=== PATIENT | female | born 1945 | race Caucasian/White ===

== ENCOUNTER 2022-10-25 20:03 | Inpatient (IN) | payer MEDICARE, SELFPAY ==
[2022-10-25] VITALS (16 sets, daily range): BP systolic 167–211; BP diastolic 62–92; PULSE 74–97; RESP 13–24; TEMP 36.8; O2SAT 93–96
--- NOTE | ~2022-10-25 | XR_ITS ---
EXAMINATION: XR chest 1V portable Exam Date/Time: 10/25/2022 20:22 CDT HISTORY: LEFT SIDED CHEST PAIN AND SHORT OF BREATH X 1 DAY Comparison: None. RESULT: Lines, tubes, and devices: None. Lungs and pleura: Segmental left lower lung airspace disease, with volume loss. Mild left costophren ic angle blunting. Diffuse reticular opacities. Cardiomediastinal silhouette: Unremarkable. Other: No acute osseous or upper abdominal finding. IMPRESSION: Mild interstitial edema. Small left pleural effusion. Left basilar atelectasis versus pneumonia. Reviewed, dictated and finalized at location K.
--- NOTE | ~2022-10-25 | US_ITS ---
EXAMINATION: US abdomen limited DATE: 10/26/2022 08:55 INDICATION: Abnormal liver function tests. Elevated alkaline phosphatase. TECHNIQUE: Multiple grayscale and Doppler ultrasound images of the abdomen were obtained. COMPARISON: CT abdomen and pelvis 08/23/2012, chest CT 10/25/2022 FINDINGS: The visualized portions of the head, body, and tail of the pancreas are normal. The liver i s normal without focal lesion. No liver surface nodularity. There is normal flow in main portal vein. The gallbladder is normal in size. No gallstones. Gallbladder wall thickening is noted. There was no sonographic Pham sign. The common duct is normal and measures 4 mm. IMPRESSION: 1. Gallbladder wall thickening, likely secondary to interstitial edema. Reviewed, dictated and finalized at location A.
--- NOTE | ~2022-10-25 | CT_ITS ---
EXAMINATION: CTA chest PE protocol DATE: 10/25/2022 21:29 INDICATION: chest pain eval for PE TECHNIQUE: Computed tomography angiography (CTA) of the chest was performed with 100 mL Omnipaque-350 intravenous contrast timed to evaluate the pulmonary arteries. Coronal maximum intensity projection 3D-reconstructions were created by the technologist. The dose-length product (DLP) was 230.54 mGy-cm. Automated exposure control and iterative reconstruction technique were employed. COMPARISON: X-ray chest, same date. FINDINGS: Lung parenchyma and airways: Senescent changes. Dependent atelectasis. Dependent groundglass opacitie s and interlobular septal thickening. Left basilar atelectasis/scar. Pleura: Small volume left pleural fluid collection. Thoracic inlet, axillae and chest wall: Mild ascending aortic ectasia. Moderate atherosclerotic calci fications of the thoracic aorta, with severe stenosis at the brachiocephalic artery and origins of th e right common carotid artery and subclavian artery. Thoracic aorta: Normal. Mediastinum: Normal. Heart and pericardium: Small volume pericardial fluid. Cardiomegaly. Coronary artery calcifications: Heavy. Upper abdomen: Left renal atrophy. Large gastric diverticulum. Bones: No acute osseous finding. Pulmonary arteries: Study quality: Adequate. No pulmonary emboli detected. IMPRESSION: No CT evidence of acute pulmonary embolus. Cardiomegaly with small pericardial effusion. Mild interst itial pulmonary edema. Small left pleural effusion. Calcified plaques with severe stenoses involving the brachiocephalic artery and origins of the right common carotid and subclavian arteries. Reviewed, dictated and finalized at location K. IMPRESSION: No CT evidence of acute pulmonary embolus. Cardiomegaly with small pericardial effusion. Mild interstitial pulmonary edema. Small left pleural effusion. Calci fied plaques with severe stenoses involving the brachiocephalic artery and orig ins of the right common carotid and subclavian arteries.
--- NOTE | 2022-10-25 20:06 | ECG_ITS ---
Measurements Intervals [place] Rate: 85 P: 16 NM: 156 QRS: 0 QRSD: 80 T: 120 QT: 348 QTc: 415 Interpretive Statements REDUCED ECG QUALITY BECAUSE OF BASELINE ARTIFACT SINUS RHYTHM CONSIDER PREVIOUS ANTEROSEPTAL IN NONSPECIFIC T-WAVE FLATTENING ABNORMAL ECG NO PREVIOUS ECG AVAILABLE FOR COMPARISON Electronically Signed On 10-29-2022 15:29:12 CDT by Ashish Acosta M.D.
[2022-10-25 20:29] LABS: Basophils Percent Auto 0.4 % (0.2-1.2); Eosinophils Absolute Auto 0.2 K/mm3 (0-0.3); Eosinophils Percent Auto 1.8 % (0-4.4); Hematocrit 32.8 % (37.0-47.0); Hemoglobin 10.6 g/dL (12.0-15.0); Immature Granulocyte Absolute 0.04 K/mm3 (0.00-0.031); Immature Granulocyte Percent A 0.4 % (0-0.5); Lymphocytes Absolute Auto 1.52 K/mm3 (0.9-3.2); Lymphocytes Percent Auto 15.8 % (18.3-44.2); Mean Corpuscular HGB Conc 32.3 g/dl (32-36); Mean Corpuscular Hemoglobin 30.8 pg (26-34); Mean Corpuscular Volume 95.3 fl (80-100); Mean Platelet Volume 9.6 fl (7.4-10.4); Monocytes Absolute Auto 0.9 K/mm3 (0.1-0.6); Monocytes Percent Auto 9.4 % (2.6-8.5); Neutrophils Absolute Auto 6.9 K/mm3 (1.3-6.7); Neutrophils Percent Auto 72.2 % (45.5-73.1); Platelet Count Result 254 k/mm3 (150-375); Red Blood Count 3.44 M/mm3 (4.2-5.4); Red Cell Distribution Width 14.1 % (11.5-14.5); White Blood Count 9.6 K/mm3 (4.5-10.0)
[2022-10-25 20:35] LABS: Partial Thromboplastin Time 31.2 SECONDS (22.3-36.8); Prothrombin Time 13.6 Seconds (11.1-14.7)
[2022-10-25 20:37] LABS: Alanine Aminotransferase 46 U/L (6-35); Albumin Level 3.8 g/dL (3.5-5.1); Alkaline Phosphatase 294 U/L (38-126); Anion Gap 6 mmol/L (8-16); Aspartate Amino Transferase 36 U/L (14-36); Bilirubin,Total 0.8 mg/dL (0.2-1.3); Blood Urea Nitrogen 21 mg/dL (7-17); Calcium 8.6 mg/dL (8.4-10.2); Carbon Dioxide 28 mmol/L (22-30); Chloride 102 mmol/L (98-107); Estimated CRCL calculation 27 ml/min; Estimated Glomerular Filt Rate 33; Glucose 106 mg/dL (65-110); Lipase 58 U/L (23-300); Potassium 3.4 mmol/L (3.4-5.0); Sodium 136 mmol/L (137-145)
[2022-10-25 20:47] LABS: Troponin I < 0.012 ng/mL (0.000-0.034)
[2022-10-25] MEDS: MORPHINE SULFATE (*CRX) 4 MG/ML INJ 2 MG IV PUSH (21:12)
--- NOTE | 2022-10-25 21:49 | ED.GENADULT ---
HPI - General Adult General Chief complaint: Chest Pain Stated complaint: chest pain Time Seen by Provider: 10/25/22 20:35 History of Present Illness HPI narrative: Patient 77-year-old female who presents to the emergency department with chief complaint of chest pain. The patient reports that she has prior history of cardiac disease and is also had pericarditis. Patient has history of cardiac disease with a prior single vessel stent patient reports that she takes aspirin and Plavix and was given 325 mg of aspirin prior to arrival by EMS. Patient states that she has a sharp-like pain Related Data Allergies Allergy/AdvReac Type Severity Reaction Status Date / Time No Known Allergies Allergy Mild Verified 10/25/22 20:12 Review of Systems Review of Systems: A 10 system review of systems was completed on the patient and is negative except for what is stated in the HPI. Nursing and ancillary documentation was reviewed. PMFSH Comments History of pericarditis history of cardiac disease Course Vital Signs Vital signs: Vital Signs Temperature 36.8 C 10/25/22 20:01 Pulse Rate 80 10/25/22 20:01 Respiratory Rate 22 H 10/25/22 20:01 Blood Pressure 211/81 H 10/25/22 20:01 Pulse Oximetry 96 10/25/22 20:01 Oxygen Delivery Room Air 10/25/22 20:01 Temperature 36.8 C 10/25/22 20:01 Pulse Rate 80 10/25/22 20:01 Respiratory Rate 22 H 10/25/22 20:01 Blood Pressure 211/81 H 10/25/22 20:01 Pulse Oximetry 96 10/25/22 20:10 Oxygen Delivery Room Air 10/25/22 20:10 Medical Decision Making [facility] Narrative Medical decision making narrative: Differential diagnosis includes ACS, carditis, CHF, pulmonary embolism, EKG sinus rhythm rate of [address] elevation or ST depression Laboratory studies were obtained on the patient showed a white count of 9.6 hemoglobin was 10.6 electrolytes showed a creatinine of 1.5 ALT was 46 alk phos was 294 troponin is less than 0.012 lipase was less than 58 IMPRESSION: No CT evidence of acute pulmonary embolus. Cardiomegaly with small pericardial effusion. Mild interstitial pulmonary edema. Small left pleural effusion. Calcified plaques with severe stenoses involving the brachiocephalic artery and origins of the right common carotid and subclavian arteries Vital Signs Vital Signs: Vital Signs Temperature 36.8 C 10/25/22 20:01 Pulse Rate 80 10/25/22 20:01 Respiratory Rate 22 H 10/25/22 20:01 Blood Pressure 211/81 H 10/25/22 20:01 Pulse Oximetry 96 10/25/22 20:01 Oxygen Delivery Room Air 10/25/22 20:01 Temperature 36.8 C 10/25/22 20:01 Pulse Rate 80 10/25/22 20:01 Respiratory Rate 22 H 10/25/22 20:01 Blood Pressure 211/81 H 10/25/22 20:01 Pulse Oximetry 96 10/25/22 20:10 Oxygen Delivery Room Air 10/25/22 20:10 Lab Data 10/25/22 20:19 10/25/22 20:19 Labs: Lab Results 10/25/22 Range/Units 20:19 WBC 9.6 (4.5-10.0) K/mm3 RBC 3.44 L (4.2-5.4) M/mm3 Hgb 10.6 L (12.0-15.0) g/dL Hct 32.8 L (37.0-47.0) % MCV 95.3 (80-100) fl MCH 30.8 (26-34) pg MCHC 32.3 (32-36) g/dl RDW 14.1 (11.5-14.5) % Plt Count 254 (150-375) k/mm3 MPV 9.6 (7.4-10.4) fl Immature Gran % (Auto) 0.4 (0-0.5) % Neut % (Auto) 72.2 (45.5-73.1) % Lymph % (Auto) 15.8 L (18.3-44.2) % [place] % (Auto) 9.4 H (2.6-8.5) % Eos % (Auto) 1.8 (0-4.4) % Baso % (Auto) 0.4 (0.2-1.2) % Lymph # (Auto) 1.52 (0.9-3.2) K/mm3 [place] # (Auto) 0.9 H (0.1-0.6) K/mm3 Eos # (Auto) 0.2 (0-0.3) K/mm3 Baso # (Auto) 0.0 (0.0-0.1) K/mm3 Abs Immat Gran (auto) 0.04 H (0.00-0.031) K/mm3 Absolute Neuts (auto) 6.9 H (1.3-6.7) K/mm3 Absolute Nucleated RBC 0.0 (0.0-0.012) K/mm3 Nucleated RBC % 0.0 (0.0-0.2) % PT 13.6 (11.1-14.7) Seconds INR 1.0 APTT 31.2 (22.3-36.8) SECONDS Sodium 136 L (137-145) mmol/L Potassium 3.4 (3.4-5.0) mmol/L Chloride 102 (98-107) mmol/L Ca
[2022-10-25] MEDS: HYDROmorphone HCL INJ (*CRX) 1 MG/ML SYR IV PUSH (22:08)
[2022-10-25] MEDS: hydrALAZINE HCL 20 MG/ML VIAL 10 MG IV PUSH (22:08)
--- NOTE | 2022-10-25 22:16 | PM.IMHP ---
H&P: HPI History of Present Illness Date/Time: 10/25/22 22:16 Chief Complaint: chest pain Narrative: This is a 77-year-old female with past medical history significant for coronary artery disease, pericardial disease, pleural effusion. Patient presents to the emergency room due to chest pain localized to the left ribcage area worse with deep inspiration, nonradiating, no lightheadedness, no syncope, no near syncope, no PND, no orthopnea, no leg swelling, has had cough, night sweats, nasal congestion, according to patient she has had multiple hospitalizations in the last several weeks, patient denies any nausea, vomiting, abdominal pain, diarrhea, no weight loss, no rashes, no hemoptysis, no fevers no rigors no chills. Preliminary workup was significant for a chest x-ray was reported as: EXAMINATION:? XR chest 1V portable Exam Date/Time:? 10/25/2022 20:22 CDT HISTORY: LEFT SIDED CHEST PAIN AND SHORT OF BREATH X 1 DAY ? Comparison:? None. RESULT: Lines, tubes, and devices:? None. Lungs and pleura:? Segmental left lower lung airspace disease, with volume loss. Mild left costophrenic angle blunting. Diffuse reticular opacities. Cardiomediastinal silhouette:? Unremarkable. Other:? No acute osseous or upper abdominal finding. ? IMPRESSION: Mild interstitial edema. Small left pleural effusion. Left basilar atelectasis versus pneumonia. EXAMINATION: CTA chest PE protocol DATE: 10/25/2022 21:29 INDICATION: chest pain eval for PE TECHNIQUE: Computed tomography angiography (CTA) of the chest was performed with 100 mL Omnipaque-350 intravenous contrast timed to evaluate the pulmonary arteries. Coronal maximum intensity projection 3D-reconstructions were created by the technologist. The dose-length product (DLP) was 230.54 mGy-cm. Automated exposure control and iterative reconstruction technique were employed. COMPARISON: X-ray chest, same date. ? FINDINGS:? Lung parenchyma and airways: Senescent changes. Dependent atelectasis. Dependent groundglass opacities and interlobular septal thickening. Left basilar atelectasis/scar. Pleura: Small volume left pleural fluid collection. Thoracic inlet, axillae and chest wall: Mild ascending aortic ectasia. Moderate atherosclerotic calcifications of the thoracic aorta, with severe stenosis at the brachiocephalic artery and origins of the right common carotid artery and subclavian artery. Thoracic aorta: Normal. Mediastinum: Normal. Heart and pericardium: Small volume pericardial fluid. Cardiomegaly. Coronary artery calcifications: Heavy. Upper abdomen: Left renal atrophy. Large gastric diverticulum. Bones: No acute osseous finding. Pulmonary arteries: Study quality: Adequate. No pulmonary emboli detected. IMPRESSION: No CT evidence of acute pulmonary embolus. Cardiomegaly with small pericardial effusion. Mild interstitial pulmonary edema. Small left pleural effusion. Calcified plaques with severe stenoses involving the brachiocephalic artery and origins of the right common carotid and subclavian arteries. Review of Systems Review of Systems: Left-sided chest pain worse with inspiration nonradiating Constitutional: Constitutional: Reports chills, Reports malaise, Reports night sweats and Reports poor appetite Eyes: Eyes: Denies change in vision ENT: Denies dysphagia and Denies odynophagia Cardiovascular: Cardiovascular: Denies chest pain, Denies leg edema, Denies radiating jaw, neck or arm pain and Denies palpitations Respiratory: Respiratory: Reports cough and Reports pain on inspiration Gastrointestinal: Gastrointestinal: Denies abdominal pain, Denies dyspepsia, Denies heartburn, Denies diarrhea, Denies nausea and Denies vomiting Genitourinary: Genitourinary: Reports no additional female genitourinary complaints and Reports as per HPI Musculoskeletal: Musculoskeletal: Denies arthralgias, Denies joint swelling and Denies muscle weakness Integumentary/Breast
[2022-10-25 23:22] LABS: NT Pro B Type Natriuretic Pept 1010 pg/mL (19.9-100)
[2022-10-25 23:30] LABS: Troponin I < 0.012 ng/mL (0.000-0.034)
[2022-10-26] VITALS (20 sets, daily range): BP systolic 98–175; BP diastolic 54–83; PULSE 61–107; RESP 12–20; TEMP 35.6–37; O2SAT 93–98
--- NOTE | 2022-10-26 | ECHO_ITS ---
Patient Info Name: Valentina Tucker Age: 77 years : 1945 Gender: Female Ht: 64 in Wt: 160 lbs BSA: 1.83 m2 HR: 95 bpm BP: 175 / 68 mmHg Heart Rhythm: Sinus Rhythm Technical Quality: Fair Exam Date: 10/26/2022 8:43 AM Exam Location: [facility] Patient Status: Inpatient Admit Date: 10/25/2022 Staff Ordering Physician: Patrick Adams MD Grounds Maintenance Worker: Anne Clement RDCS Attending Provider: Isidoro Urbano MD Referring Physician: Angie SHERMAN; Exam Type: CA echo dop color flow w con Study Info Indications - pericardial effusion R07.9 - Chest pain, unspecified Complete two-dimensional, color flow and Doppler transthoracic echocardiogram is performed with contrast to opacify the left ventricle and to improve the deliniation of the left ventricle endocardial borders. Contrast/Agitated Saline Contrast/Ag. Saline: Definity Amount: 2.00 ml Administered By: Anne Clement RDCS Existing IV Access: Yes IV Access Condition: patent with no signs of infiltration Summary 1. Left ventricular hypertrophy with vigorous systolic contractility. 2. No valvular dysfunction identified. 3. Small circumferential pericardial effusion. Left Ventricle Left ventricular chamber dimension is normal. Left ventricular systolic function is hyperdynamic, estimated at >70%. There is moderate concentric increased left ventricular wall thickness. The left ventricular diastolic function is grade I diastolic dysfunction. Right Ventricle Right ventricular chamber dimension is normal. Left Atria Left atrial chamber dimension is mildly enlarged. Right Atria Right atrial chamber dimension is normal. Aortic Valve The aortic valve is normal. Pulmonic Valve The pulmonic valve is normal. Mitral Valve The mitral valve has normal leaflets. Tricuspid Valve The tricuspid valve leaflets are normal. Pericardium/Pleural There is small circumferential pericardial effusion. Aorta The aortic root size at the sinus of Valsalva is normal. Left Ventricular Outflow Tract Name Value Normal LVOT 2D LVOT Diameter 1.98 cm LVOT Doppler LVOT Peak Gradient 4 mmHg LVOT Mean Gradient 2 mmHg LVOT VTI 18.28 cm LVOT VTI/AV VTI Ratio 0.63 LVOT Stroke Volume 56.25 ml LVOT CO 4.41 l/min LVOT CI 2.41 L/min/m2 Pulmonic Valve Name Value Normal RVOT Doppler RVOT Peak Gradient 3 mmHg PV Doppler PV Peak Gradient 3 mmHg Mitral Valve Name Value Normal
--- NOTE | 2022-10-26 00:47 | ADMIMU ---
This patient, Valentina Tucker, was admitted to IMU status, and placed in Intensive Care Unit-4. Patient/family oriented to hospital policies and general routines including ID bracelet, bed and alarms, visiting hours, pain management, procedures, bathroom and other care routines, personal items, smoking policy, room service/diet, and visiting hours. Valuables list has been completed. Information on how to activate the Rapid Response Team has been discussed. Patient/Family are encouraged to report perceived risks to care and to ask questions if they do not understand what they are told or what they should do.
[2022-10-26] MEDS: METOPROLOL SUCCINATE EXT REL 12.5 MG TABCR PO ×2 (01:08→08:12)
[2022-10-26] MEDS: HYDROmorphone HCL INJ (*CRX) 1 MG/ML SYR IV PUSH ×5 (01:09→21:46)
[2022-10-26] MEDS: amLODIPine BESYLATE 5 MG TABLET PO ×2 (01:09→08:13)
[2022-10-26] MEDS: MELATONIN 3 MG TABLET PO ×2 (02:22→20:48)
[2022-10-26] MEDS: traZODone HCL 50 MG TABLET PO ×2 (02:22→20:48)
[2022-10-26 03:37] LABS: Troponin I 0.026 ng/mL (0.000-0.034)
[2022-10-26] MEDS: hydrALAZINE HCL 20 MG/ML VIAL 10 MG IV PUSH (04:16)
[2022-10-26] MEDS: AZITHROMYCIN 500 MG/NS 250 ML 500 MG/250 ML BAG 250 MG IVPB (04:16)
[2022-10-26] MEDS: CEFEPIME 1 GM/NS 50 ML 1 GM/50 ML BAG IVPB (04:17)
[2022-10-26] MEDS: FLUTICASONE PROPIONATE 0.05% NA SPR 16 GM BTL (*BKC) 2 SPRAY NASAL (08:11)
[2022-10-26] MEDS: ALBUTEROL SULFATE NEB 2.5 MG/3 ML INH INHALATION ×3 (08:11→20:30)
[2022-10-26] MEDS: IPRATROPIUM BR 0.02% INH SOLN 0.5 MG/2.5 ML VIAL INHALATION ×3 (08:11→20:30)
[2022-10-26] MEDS: LORATADINE 10 MG TABLET PO (08:12)
[2022-10-26] MEDS: CLOPIDOGREL BISULFATE 75 MG TABLET PO (08:12)
[2022-10-26] MEDS: lisinopriL 20 MG TABLET 40 MG PO (08:12)
[2022-10-26] MEDS: ATORVASTATIN 40 MG TABLET PO (08:12)
[2022-10-26] MEDS: ASPIRIN 81 MG ENTERIC TABLET PO (08:12)
[2022-10-26] MEDS: PANTOPRAZOLE 40 MG TABLET PO (08:13)
[2022-10-26] MEDS: COLCHICINE 0.3 MG TABLET PO ×2 (08:15→17:05)
[2022-10-26] MEDS: ENOXAPARIN 30 MG/0.3 ML SYRINGE SUB-Q (08:15)
[2022-10-26] MEDS: PERFLUTREN LIPID MICROSPHERES 1.5 ML VIAL DILUTED TO 10 ML TOTAL VOLUME IV PUSH (09:20)
--- NOTE | 2022-10-26 10:05 | PM.CNCAR ---
Assessment and Plan Assessment and plan (1) Pericarditis: Code(s): I31.9 - Disease of pericardium, unspecified Status: Acute Plan This is a 77-year-old lady who appears to have recurrent pericarditis with significant chest pain that has been occurring off and on since January of last year after a complicated PCI as she details above. There is no evidence of an acute coronary syndrome and from that aspect I believe she is stable. She is taking colchicine since the original event. At this point I believe I would recommend resuming prednisone and tapering at much more slowly possibly over several months and her physicians at [facility] will see have to see her and determine a slower more cautious approach at a tapering this over a longer period of time. I would recommend a more aggressive approach and slow tapering to hopefully avoid chronic effusive constrictive disease in the years that lie ahead Ashish Acosta MD [facility] History of Present Illness History of Present Illness Consult date/time: 10/26/22 10:05 Reason For Visit: Chest Pain,Pericardial Effusion,Pleural Effusion Narrative: This is a very pleasant 77-year-old lady I am seeing at the request of the hospitalist because of his chest pain. The patient is unknown to me prior to this consultation but provides a very good history. She indicates since she was found to have coronary artery disease in January of 2022 when she was being evaluated by skoog patching machine operator at [facility] because of symptoms of exertional shortness of breath. She says she was brought to the cardiac catheterization lab for evaluation and found to have high-grade disease in the left anterior descending. PCI of this was performed but unfortunately was complicated by a dissection of the LAD. She says of course that during this part of the procedure she was having severe chest and back pain and ultimately the procedure was completed successfully, her LAD was stented and her skoog patching machine operator told her that she had a good result and there was no substantial damage to her heart a following that procedure/incident. Since then she has had several hospital stays/admissions for pericarditis. She describes being seen at [facility] on 2 occasions and on 1 occasion and a hospital in [place] as she and her were wintering down there. She has been on colchicine 0.6 mg twice daily since this all started she off had in the fall of last year was treated with a course of indomethacin which was then tapered and discontinued last month her skoog patching machine operator at [facility] had her on a course of prednisone which was tapered over the course of about 3-4 weeks and she felt quite well when she was taking prednisone. That stopped a couple of weeks ago she states that this dull chest pain began to recur following the of the steroid being discontinued yesterday the pain became much more severe again she was describing a point like pain in the center of the chest that was much worse with deep breathing and were were sent worsening with the supine position. She called an ambulance because of the symptoms in the proximity to [facility] she was brought here here for evaluation. She had a chest x-ray done which shows some enlargement in the cardiac silhouette a chest CT done which demonstrates a small circumferential pericardial effusion. Her elected cardiogram shows no acute ischemic changes. Her troponin levels do not show any evidence of myocardial injury. In this setting she is being seen in consultation. She says she was given some analgesic medications earlier last night still having pain but it is much better than it was yesterday evening. She does report a history of peripheral vascular disease with previous percutaneous intervention in the right lower extremity. She is also known to have carotid artery disease on the right side that is being followed by a vascular surgeon elsewhere. Chest CT done yesterday the emergency room shows disease
[2022-10-26] MEDS: predniSONE 20 MG TABLET PO (10:53)
--- NOTE | 2022-10-26 11:41 | PM.IMPN ---
Progress Note: A&P Assessment and Plan (1) Lung infiltrate: Code(s): R91.8 - Other nonspecific abnormal finding of lung field Status: Acute Assessment and Plan: Admit to telemetry unit Patient placed on cefepime in vancomycin Zithromax due to multiple hospitalizations Cultures in progress Supportive care (2) Chest pain: Code(s): R07.9 - Chest pain, unspecified Status: Acute Assessment and Plan: ? pericarditis prednisone, colchicine (3) Pericarditis: Code(s): I31.9 - Disease of pericardium, unspecified Status: Acute Assessment and Plan: Continue colchicine (4) Recurrent left pleural effusion: Code(s): J90 - Pleural effusion, not elsewhere classified Status: Acute Assessment and Plan: A small pleural effusion Gentle diuresis as needed (5) CAD (coronary artery disease): Code(s): I25.10 - Atherosclerotic heart disease of [place] coronary artery without angina pectoris Status: Acute Assessment and Plan: Status post stent placement Continue Plavix, continue metoprolol or, continue lisinopril, atorvastatin and nitroglycerin (6) Elevated alkaline phosphatase level: Code(s): R74.8 - Abnormal levels of other serum enzymes Status: Acute Assessment and Plan: US noted (7) CKD (chronic kidney disease): Code(s): N18.9 - Chronic kidney disease, unspecified Status: Acute Assessment and Plan: monitor labs Subjective Date/time seen: 10/26/22 11:41 Interval history: No complaints Exam Narrative: Patient is sitting in semi erect position stretcher Const: General: cooperative, comfortable, no acute distress, well developed, alert, awake, ill appearing acutely and average body habitus Nutritional Appearance: average body habitus Orientation/consciousness: patient oriented x3 Other: Pleasant comfortable cooperative elderly lady appears to be in no distress visiting with her . Has worsening chest pain upon sitting up for examination HENMT: Head: normal to inspection, normocephalic and atraumatic Ears: hearing grossly normal bilaterally Face/Nose/Sinus: normal facial exam Face and sinus: normal facial exam Mouth: Yes moist mucous membranes Eyes: General: appearance normal, both eyes and all related structures Sclera: sclerae normal Pupils: Equal, round and reactive pupils present EOM: EOMs intact bilaterally Neck: Neck: full ROM, no lymphadenopathy and no JVD Thyroid: thyroid normal Lymphatic: no lymphadenopathy noted Other: Patient has a audible right carotid bruit Resp: Effort & Inspection: normal respiratory effort and able to speak in complete sentences Auscultation: clear to auscultation bilaterally, no crackles, no rales, no rhonchi, no wheezes and diminished lung sounds Other: Few rales are noted at the right base no wheezing no rhonchi Cardio: Jugular venous distension: no JVD Rate: regular rate Rhythm: regular rhythm Heart sounds: S1 normal heart sound present and S2 normal heart sound present Other: Soft 2 component pericardial rub is audible GI: Auscultation: normal bowel sounds : General: Yes deferred Skin: General skin exam: normal color Rashes: no rashes Wounds: no wounds Neuro: General: patient oriented x3, CN's II-XI intact bilaterally and Unable to assess gait Cranial nerves: Yes CN's II-XII intact bilaterally and Yes Equal, round and reactive pupils present Cognition (Neuro): normal cognition Speech: normal speech Gait exam (Neuro): Unable to assess gait Motor exam (neuro): 5/5 motor strength present throughout Sensory Exam: No Sensory deficit (Neuro) Other: Alert and oriented x3 Extrem: General: normal to inspection, full ROM, no joint enlargement and no pedal edema Other: No edema, reduced pulse in the right lower extremity Objective Data Vital Signs Vital Signs: Vital Signs - 24 hr 10/25/22 20:01 0
[2022-10-26] MEDS: LATANOPROST 0.005% OP SOLN 2.5 ML BTL 1 DROP EACH EYE (20:48)
[2022-10-27] VITALS: BP 144/52; PULSE 53; PULSE 58; RESP 20; TEMP 35.8; O2SAT 95
[2022-10-27] MEDS: CEFEPIME 1 GM/NS 50 ML 1 GM/50 ML BAG IVPB (03:45)
[2022-10-27 04:00] VITALS: PULSE 59
[2022-10-27] MEDS: AZITHROMYCIN 500 MG/NS 250 ML 500 MG/250 ML BAG 250 MG IVPB (04:15)
[2022-10-27 04:40] VITALS: BP 136/63; PULSE 63; RESP 16; TEMP 36.1; O2SAT 95
[2022-10-27 06:55] LABS: Estimated CRCL calculation 24 ml/min; Estimated Glomerular Filt Rate 33
--- NOTE | 2022-10-27 07:48 | PM.DS ---
DS: Admitting Diagnosis Discharge Date October 27, 2022 Admitting Diagnosis Pericarditis, pneumonia DS: Discharge Diagnosis Discharge Diagnosis (1) Lung infiltrate: Code(s): R91.8 - Other nonspecific abnormal finding of lung field Status: Acute Assessment and Plan: Admit to telemetry unit Patient placed on cefepime in vancomycin Zithromax due to multiple hospitalizations Cultures in progress Supportive care (2) Chest pain: Code(s): R07.9 - Chest pain, unspecified Status: Acute Assessment and Plan: ? pericarditis prednisone, colchicine (3) Pericarditis: Code(s): I31.9 - Disease of pericardium, unspecified Status: Acute Assessment and Plan: Continue colchicine (4) Recurrent left pleural effusion: Code(s): J90 - Pleural effusion, not elsewhere classified Status: Acute Assessment and Plan: A small pleural effusion Gentle diuresis as needed (5) CAD (coronary artery disease): Code(s): I25.10 - Atherosclerotic heart disease of [place] coronary artery without angina pectoris Status: Acute Assessment and Plan: Status post stent placement Continue Plavix, continue metoprolol or, continue lisinopril, atorvastatin and nitroglycerin (6) Elevated alkaline phosphatase level: Code(s): R74.8 - Abnormal levels of other serum enzymes Status: Acute Assessment and Plan: US noted (7) CKD (chronic kidney disease): Code(s): N18.9 - Chronic kidney disease, unspecified Status: Acute Assessment and Plan: monitor labs DS: Summary Hospital Course Hospital Course: Patient is 77-year-old female came in with chest pain. Found to be related to pericarditis. Increased prednisone on discharge. Otherwise her cardiac medications will be continued. No additional changes except for the prednisone. 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 Time Spent with Patient Time attestation: Total time spent providing and/or coordinating discharge services: Exam Narrative: Patient is sitting in semi erect position stretcher Const: General: cooperative, comfortable, no acute distress, well developed, alert, awake, ill appearing acutely and average body habitus Nutritional Appearance: average body habitus Orientation/consciousness: patient oriented x3 Other: Pleasant comfortable cooperative elderly lady appears to be in no distress visiting with her . Has worsening chest pain upon sitting up for examination HENMT: Head: normal to inspection, normocephalic and atraumatic Ears: hearing grossly normal bilaterally Face/Nose/Sinus: normal facial exam Face and sinus: normal facial exam Mouth: Yes moist mucous membranes Eyes: General: appearance normal, both eyes and all related structures Sclera: sclerae normal Pupils: Equal, round and reactive pupils present EOM: EOMs intact bilaterally Neck: Neck: full ROM, no lymphadenopathy and no JVD Thyroid: thyroid normal Lymphatic: no lymphadenopathy noted Other: Patient has a audible right carotid bruit Resp: Effort & Inspection: normal respiratory effort and able to speak in complete sentences Auscultation: clear to auscultation bilaterally, no crackles, no rales, no rhonchi, no wheezes and diminished lung sounds Other: Few rales are noted at the right base no wheezing no rhonchi Cardio: Jugular venous distension: no JVD Rate: regular rate Rhythm: regular rhythm Heart sounds: S1 normal heart sound present and S2 normal heart sound present Other: Soft 2 component pericardial rub is audible GI: Auscultation: normal bowel sounds : General: Yes deferred Skin: General skin exam: normal color Rashes: no rashes Wounds: no wounds Neuro: General: patient oriented x3, CN's II-XI intact bilaterally and Unable to assess gait Cranial nerves: Yes CN's II-XII intact bilaterally and Yes Equal, round and reactive pupils present Cognition (Neuro
[2022-10-27 08:00] VITALS: PULSE 71
[2022-10-27] MEDS: FLUTICASONE PROPIONATE 0.05% NA SPR 16 GM BTL (*BKC) 2 SPRAY NASAL (08:52)
[2022-10-27] MEDS: CLOPIDOGREL BISULFATE 75 MG TABLET PO (08:53)
[2022-10-27] MEDS: PANTOPRAZOLE 40 MG TABLET PO (08:53)
[2022-10-27] MEDS: LORATADINE 10 MG TABLET PO (08:53)
[2022-10-27] MEDS: COLCHICINE 0.3 MG TABLET PO (08:53)
[2022-10-27] MEDS: lisinopriL 20 MG TABLET 40 MG PO (08:53)
[2022-10-27] MEDS: METOPROLOL SUCCINATE EXT REL 12.5 MG TABCR PO (08:53)
[2022-10-27] MEDS: ATORVASTATIN 40 MG TABLET PO (08:53)
[2022-10-27] MEDS: ASPIRIN 81 MG ENTERIC TABLET PO (08:53)
[2022-10-27] MEDS: predniSONE 20 MG TABLET PO (08:53)
[2022-10-27] MEDS: amLODIPine BESYLATE 5 MG TABLET PO (08:53)
--- NOTE | 2022-10-27 09:47 | PM.PNCARD ---
Progress Note: A&P Assessment and Plan (1) Pericarditis: Code(s): I31.9 - Disease of pericardium, unspecified Status: Acute Assessment and Plan: Recurrent : continue colchicine and prednisone with a slow taper. She is seeing Cardiology at [facility] on Saturday and will defer to them regarding tapering regimen.. Reviewed labs and creatinine is stable from yesterday at 1.5 Subjective Date/time seen: 10/27/22 09:47 Interval history: 77-year-old with recurrent pericarditis Date of service 10/27/2022: Feels better. Has less chest pain but still mildly present. Anxious to be discharged. No shortness of breath Review of Systems Constitutional: Constitutional: Reports no additional constitutional complaints Eyes: Eyes: Reports no additional eye complaints ENT: Reports system reviewed and no additional complaints, except as documented Cardiovascular: Cardiovascular: Reports as per HPI and Reports chest pain Respiratory: Respiratory: Reports no additional respiratory complaints Gastrointestinal: Gastrointestinal: Reports no additional gastrointestinal complaints Musculoskeletal: Musculoskeletal: Reports no additional musculoskeletal complaints Integumentary/Breasts: Skin/Breast: Reports system reviewed and no additional complaints, except as docu Neurologic: Reports system reviewed and no additional complaints, except as documented Endocrine: Endocrine: Reports no additional endocrine complaints Hematologic/Lymphatic: Hematologic/Lymphatic: Reports no additional hematologic/lymphatic complaints Allergic/Immunologic: Allergic/Immunologic: Reports no additional allergic/immunologic complaints Exam Const: General: comfortable and no acute distress Other: Pleasant comfortable cooperative elderly lady appears to be in no distress visiting with her . Has worsening chest pain upon sitting up for examination HENMT: Mouth: Yes moist mucous membranes Eyes: Sclera: sclerae normal Pupils: Equal, round and reactive pupils present Neck: Neck: supple and no JVD Other: Patient has a audible right carotid bruit Resp: Effort & Inspection: normal respiratory effort Other: Few rales are noted at the right base no wheezing no rhonchi Cardio: Rate: regular rate Rhythm: regular rhythm Other: Soft 2 component pericardial rub is audible GI: Auscultation: normal bowel sounds Skin: General skin exam: normal color Neuro: Cranial nerves: Yes Equal, round and reactive pupils present Other: Alert and oriented x3 Extrem: General: normal to inspection Other: No edema, reduced pulse in the right lower extremity Objective Data Vital Signs Vital Signs: Vital Signs - 24 hr 10/26/22 10:00 10/26/22 11:04 10/26/22 12:00 Temperature Pulse Rate 80 81 91 Respiratory Rate 14 Blood Pressure Pulse Oximetry 97 Oxygen Delivery Room Air 10/26/22 12:00 10/26/22 14:37 10/26/22 14:47 Temperature Pulse Rate 80 87 88 Respiratory Rate 12 16 18 Blood Pressure 98/83 L Pulse Oximetry 97 Oxygen Delivery 10/26/22 16:00 10/26/22 16:00 10/26/22 20:30 Temperature 36.9 C Pulse Rate 75 73 61 Respiratory Rate 16 Blood Pressure 122/54 L Pulse Oximetry 96 93 Oxygen Delivery Room Air 10/26/22 20:30 10/26/22 20:42 10/26/22 20:00 Temperature 35.6 C L Pulse Rate 68 63 61 Respiratory Rate 18 18 18 Blood Pressure 109/59 L Pulse Oximetry 95 Oxygen Delivery 10/26/22 20:00 10/27/22 00:00 10/27/22 00:00 Temperature 35.8 C L Pulse Rate 63 58 L 53 L Respiratory Rate 20 Blood Pressure 144/52 H Pulse Oximetry 95 Oxygen Delivery 10/27/22 04:00 10/27/22 04:40 10/27/22 08:00 Temperature 36.1 C L Pulse Rate 59 L 63 71 Respiratory Rate 16 Blood Pressure 136/63 Pulse Oximetry 95 Oxygen Delivery 10/27/22 09:00 Temperature Pulse Rate Respiratory Rate Blood Pressure Pulse Oximetry Oxygen [place]
== END 2022-10-27 09:48 | disposition home or self-care (01) | DRG 315 ==
LOC: ANHED 20:38 → ANHICU 23:18 → ANH3MEDSUR 10-26 17:46
PROVIDERS: Admitting Provider Internal Medicine; Emergency Provider Emergency Medicine; Visit Provider Chiropractor
DX: I31.9 Disease of pericardium, unspecified (principal); J90 Pleural effusion, not elsewhere classified; I25.10 Atherosclerotic heart disease of native coronary artery without angina pectoris; Z95.5 Presence of coronary angioplasty implant and graft; N18.9 Chronic kidney disease, unspecified; R91.8 Other nonspecific abnormal finding of lung field
CPT/HCPCS: 36415; 71045; 71275; 76705; 80053; 82565; 83690; 83880; 84484; 85025; 85610; 85730; 87040; 87081; 93005; 94640; 94762; 96365; 96366; 96375; 96376; 99285; A9270; C8929; G0378; J0360; J0456; J0692; J1170; J1650; J2270; J3370; J7512; Q9957; Q9967